=== PATIENT | female | born 1995 | race African-American/Black ===

== ENCOUNTER 2018-07-21 14:01 | Emergency (ER) | payer OTHER ==
[~2018-07-21] VITALS: Ht 154.9 cm; Wt 55.0 kg
[2018-07-21] MEDS ORDERED: ONDANSETRON 4MG/2ML VIAL (J2405) IV ONE (14:45)
[2018-07-21] MEDS ORDERED: MORPHINE 2 MG/ML 1ML SYRINGE (J2270) IV ONE (14:45)
[2018-07-21 15:55] LABS: BASO % 0.4 % (0.0-1.0); EOS % 0.6 % (0.0-3.0); HEMATOCRIT 38.9 % (36.0-47.0); HEMOGLOBIN 12.1 g/dl (12.0-15.5); LYMPH # 2.3 10^3/uL (1.5-6.5); MEAN CORPUSCULAR HEMOGLOBIN 21.5 pg (27.0-33.0); MEAN CORPUSCULAR HGB CONC 31.1 g/dl (32.0-36.5); MEAN CORPUSCULAR VOLUME 69.1 fl (80.0-96.0); MONO # 0.9 10^3/uL (0.0-0.8); MONO % 12.8 % (0.0-5.0); NEUTROPHILS # 3.7 10^3/uL (1.8-7.7); NEUTROPHILS % 52.9 % (36.0-66.0); PLATELET COUNT, AUTOMATED 240 10^3/uL (150-450); RED BLOOD COUNT 5.63 10^6/uL (4.00-5.40)
[2018-07-21 16:25] LABS: BLOOD UREA NITROGEN 12 MG/DL (7-18); CALCIUM LEVEL 8.8 MG/DL (8.5-10.1); CARBON DIOXIDE LEVEL 27 MEQ/L (21-32); CHLORIDE LEVEL 106 MEQ/L (98-107); CPK CREATINE PHOSPHOKINASE 177 U/L (26-192); CREATININE FOR GFR 0.73 MG/DL (0.55-1.30); GLOMERULAR FILTRATION RATE > 60.0 (>60); GLUCOSE, FASTING 85 MG/DL (70-100); MB/CK RELATIVE INDEX 1.07 (< OR =4); POTASSIUM SERUM 3.8 MEQ/L (3.5-5.1); SODIUM LEVEL 142 MEQ/L (136-145); TROPONIN I 0.34 NG/ML (< 0.10)
[2018-07-21 16:26] LABS: HCG, SERUM QUALITATIVE NEGATIVE (NEGATIVE)
--- NOTE | 2018-07-21 16:59 | REP ---
Portable chest x-ray: Single view. History: Chest pain. No comparison study. Findings: EKG monitoring electrodes and nipple jewelry are noted. The lungs are well inflated and clear. Pleural angles are sharp. Heart size is normal. Pulmonary vasculature is not increased. No significant bony abnormality is seen. Impression: No acute disease. Electronically Signed by Keegan Wild MD 07/21/2018 04:51 P
[2018-07-21] MEDS ORDERED: NS 1,000 ML IV ONE (17:00)
[2018-07-21 17:12] LABS: INR 1.01; PARTIAL THROMBOPLASTIN TIME 27.5 SECONDS (25.4-37.6); PROTHROMBIN TIME 13.4 SECONDS (12.1-14.4)
[2018-07-21 17:18] LABS: D-DIMER QUANT < 270 ng/ml (<500)
[2018-07-21] MEDS ORDERED: CLOPIDOGREL 300 MG TAB (PLAVIX) PO STA (17:31)
[2018-07-21 18:23] VITALS: BP 121/70
--- NOTE | 2018-07-21 19:58 | ECGEPIP ---
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
== END 2018-07-21 18:26 | disposition short-term general hospital (02) ==
LOC: M ED 14:01
DX: R07.9 Chest pain, unspecified (principal); R79.89 Other specified abnormal findings of blood chemistry; F17.200 Nicotine dependence, unspecified, uncomplicated
CPT/HCPCS: 71045; 80048; 82550; 82553; 84484; 84703; 85025; 85379; 85610; 85730; 93005; 93041; 94760; 96374; 96375; 99285; J2270; J2405